=== PATIENT | female | born 1955 | race Caucasian/White ===

== ENCOUNTER 2016-11-20 13:27 | Emergency (ER) | payer OTHER ==
[~2016-11-20] VITALS: Ht 180.3 cm; Wt 106.3 kg
[~2016-11-20 13:27] MED LIST: ALPRAZOLAM1 MG PO; ATARAX,VISTARIL25 MG PO; ATORVASTATIN CA10 MG PO; BACLOFEN10 MG PO; CARISOPRODOL350 MG PO; CEPHALEXIN500 MG PO; DECARA50000 UNIT PO; DEXILANT30 MG PO; FIORICET,ESG1 TABLET PO; FLEXERIL10 MG PO; FLEXERIL5 MG PO; FLONASE16 G1 BOTH NARES; GABAPENTIN300 MG PO; K-DUR20 MEQ PO; LIDODERM 5% P1 PATCH TD; LISINOPRIL10 MG PO; LISINOPRIL20 MG PO; LORTAB 5-325 M1 EACH PO; MOTRIN600 MG PO; NAPROSYN500 MG PO; NAPROXEN500 MG PO; NIX 5% CREAM60 GM TP; NYSTATIN-TRIAMC15 GM TP; PEPCID40 MG PO; PERCOCET 5/31 TABLET PO; PREDNISONE10 MG PO; PREDNISONE20 MG PO; SINGULAIR10 MG PO; SOMA350 MG PO; TEMAZEPAM30 MG PO; TRAMADOL HCL50 MG PO; ULTRAM50 MG PO; VALIUM5 MG PO; XANAX1 MG PO; ZANTAC75 M1 PO; ZOFRAN4 MG PO
[2016-11-20] MEDS ORDERED: MOTRIN800 MG PO (14:51)
[2016-11-20] MEDS ORDERED: ULTRAM50 MG PO (14:51)
[2016-11-20] MEDS ORDERED: PREDNISONE20 MG PO (14:51)
[2016-11-20 15:18] VITALS: BP 164/99
== END 2016-11-20 15:19 | disposition home or self-care (01) ==
LOC: EME 13:27
DX: M54.42 Lumbago with sciatica, left side (principal); G89.29 Other chronic pain; I10 Essential (primary) hypertension; M79.7 Fibromyalgia; F17.200 Nicotine dependence, unspecified, uncomplicated
CPT/HCPCS: 99281; 99284; J1885; J2270; J3360; J7512

== ENCOUNTER 2017-02-01 14:46 | Emergency (ER) | payer OTHER ==
[~2017-02-01 14:46] MED LIST changes: +MOTRIN800 MG PO
[2017-02-01 15:14] LABS: EOSINOPHIL COUNT 0.1 K/uL (0-0.3); HEMATOCRIT 47.2 % (36.0-46.0); IMMATURE GRANULOCYTE (%) 0.2 % (0.0-0.7); INSTRUMENT ABS NEUTROPHIL CT 2.8 K/uL; LYMPHOCYTE COUNT 1.9 K/uL (1.0-2.8); MCHC 31.6 G/DL (30.0-36.0); MCV 88.7 FL (83-99); MEAN PLAT.VOLUME 10.3 uM^3 (9.5-12.4); MONOCYTE (%) 8.6 % (3-12); MONOCYTE COUNT 0.5 K/uL (0-0.8); NEUTROPHIL (%) 53.2 % (45-76); NEUTROPHIL COUNT 2.8 K/uL (1.8-6.4); PLATELET COUNT 253 K/uL (156-360); RBC DIS.WIDTH-CV 14.2 % (11.8-14.6); RBC DIS.WIDTH-SD 45.8 % (39-53); RED BLOOD COUNT 5.32 M/uL (3.80-5.20); WHITE BLOOD COUNT 5.3 K/uL (4.1-10.2)
[2017-02-01 15:22] LABS: AMYLASE 55 IU/L (1-118); CHLORIDE 107 mEq/L (99-109); POTASSIUM 3.9 mEq/L (3.7-5.4); SODIUM 142 mEq/L (136-147)
[2017-02-01 15:24] LABS: GLUCOSE 101 mg/dL (70-99)
[2017-02-01 15:26] LABS: ANION GAP 12 MEQ/L (2-14)
[2017-02-01 15:27] LABS: SERUM ETHYL ALCOHOL < 10 mg/dL
[2017-02-01 15:28] LABS: GFR ESTIMATE (CALCULATED) > 59 mL/min/
[2017-02-01 15:29] LABS: UREA NITROGEN (BUN) 17 mg/dL (9-23)
[2017-02-01 15:31] LABS: LIPASE 11 U/L (1.0-51.0)
[2017-02-01 18:00] VITALS: BP 115/62
== END 2017-02-01 18:37 | disposition home or self-care (01) ==
LOC: TRA
PROVIDERS: Emergency Medicine
DX: S00.81XA Abrasion of other part of head, initial encounter (principal); V48.1XXA Car passenger injured in noncollision transport accident in nontraffic accident, initial encounter
CPT/HCPCS: 70450; 71250; 72125; 74176; 80048; 81003; 82150; 83690; 85025; 86900; 86901; 93005; 99281; 99284; G0480

== ENCOUNTER 2017-02-11 03:48 | Emergency (ER) | payer OTHER ==
[~2017-02-11] VITALS: Ht 180.3 cm; Wt 111.0 kg
[2017-02-11 05:21] VITALS: BP 166/103
== END 2017-02-11 05:32 | disposition home or self-care (01) ==
LOC: EME 03:48
DX: S16.1XXA Strain of muscle, fascia and tendon at neck level, initial encounter (principal); S06.0X0A Concussion without loss of consciousness, initial encounter; V89.2XXA Person injured in unspecified motor-vehicle accident, traffic, initial encounter; M54.32 Sciatica, left side; I10 Essential (primary) hypertension; F17.200 Nicotine dependence, unspecified, uncomplicated
CPT/HCPCS: 70450; 72125; 99281; 99284; J1170; J7512

== ENCOUNTER 2017-02-11 12:36 | Emergency (ER) | payer OTHER ==
[~2017-02-11] VITALS: Ht 180.3 cm; Wt 108.0 kg
[2017-02-11 13:47] LABS: HEMATOCRIT 42.9 % (36.0-46.0); MCH 28.5 PG (29.0-34.0); MCHC 32.4 G/DL (30.0-36.0); MCV 88.1 FL (83-99); MEAN PLAT.VOLUME 10.8 uM^3 (9.5-12.4); PLATELET COUNT 258 K/uL (156-360); RBC DIS.WIDTH-SD 45.2 % (39-53); RED BLOOD COUNT 4.87 M/uL (3.80-5.20); WHITE BLOOD COUNT 5.6 K/uL (4.1-10.2)
[2017-02-11 13:57] LABS: CHLORIDE 107 mEq/L (99-109); POTASSIUM 3.7 mEq/L (3.7-5.4); SODIUM 140 mEq/L (136-147)
[2017-02-11 13:59] LABS: GLUCOSE 180 mg/dL (70-99)
[2017-02-11 14:00] LABS: ANION GAP 12 MEQ/L (2-14)
[2017-02-11 14:03] LABS: GFR ESTIMATE (CALCULATED) > 59 mL/min/
[2017-02-11 14:04] LABS: UREA NITROGEN (BUN) 9 mg/dL (9-23)
[2017-02-11 14:51] LABS: ADD MIUA? YES; BILIRUBIN NEGATIVE; BLOOD SMALL; COLOR STRAW ((YELLOW)); GLUCOSE (STRIP) NEGATIVE; KETONES NEGATIVE; LEUKOCYTES NEGATIVE; NITRITE NEGATIVE; PROTEIN (STRIP) NEGATIVE; SPECIFIC GRAVITY 1.006 (1.000-1.030); UROBILINOGEN 0.2 MG/DL (0.2-1.0)
[2017-02-11 14:58] LABS: BACTERIA RARE /HPF; EPITHELIAL CELLS RARE /HPF; MUCUS TRACE /LPF; RED BLOOD CELLS 0-5 /HPF (0-5); WHITE BLOOD CELLS 0-5 /HPF (0-5)
[2017-02-11 15:32] VITALS: BP 155/79
== END 2017-02-11 15:33 | disposition home or self-care (01) ==
LOC: RME 12:36 → EME 12:36 → RME 15:33
PROVIDERS: Nurse Practitioner Family
DX: R51 Headache (principal); F07.81 Postconcussional syndrome; I10 Essential (primary) hypertension; V89.2XXD Person injured in unspecified motor-vehicle accident, traffic, subsequent encounter; F17.200 Nicotine dependence, unspecified, uncomplicated; Z88.0 Allergy status to penicillin
CPT/HCPCS: 80048; 81003; 85027; 99281; 99285; J1100; J1200; J1630; J1885; J2765; J7030

== ENCOUNTER 2017-04-20 01:07 | Emergency (ER) | payer OTHER ==
[~2017-04-20] VITALS: Ht 180.3 cm; Wt 104.5 kg
[2017-04-20 01:35] LABS: MCH 28.3 PG (29.0-34.0); MCHC 32.2 G/DL (30.0-36.0); MCV 87.9 FL (83-99); MEAN PLAT.VOLUME 10.3 uM^3 (9.5-12.4); PLATELET COUNT 241 K/uL (156-360); RBC DIS.WIDTH-CV 14.6 % (11.8-14.6); RED BLOOD COUNT 5.12 M/uL (3.80-5.20)
[2017-04-20 01:44] LABS: CHLORIDE 100 mEq/L (99-109); POTASSIUM 3.8 mEq/L (3.7-5.4); SODIUM 140 mEq/L (136-147)
[2017-04-20 01:46] LABS: GLUCOSE 124 mg/dL (70-99)
[2017-04-20 01:48] LABS: ANION GAP 16 MEQ/L (2-14); TOTAL BILIRUBIN 0.3 mg/dL (0.0-1.0)
[2017-04-20 01:50] LABS: ALKALINE PHOSPHATASE 128 IU/L (3-129); GFR ESTIMATE (CALCULATED) > 59 mL/min/
[2017-04-20 01:51] LABS: UREA NITROGEN (BUN) 28 mg/dL (9-23)
[2017-04-20 02:41] LABS: ADD MIUA? NO; BILIRUBIN NEGATIVE; BLOOD NEGATIVE; COLOR YELLOW ((YELLOW)); GLUCOSE (STRIP) NEGATIVE; KETONES 20; LEUKOCYTES NEGATIVE; NITRITE NEGATIVE; PROTEIN (STRIP) NEGATIVE; SPECIFIC GRAVITY 1.026 (1.000-1.030); UCUL ADDED? NO; UROBILINOGEN 0.2 MG/DL (0.2-1.0)
[2017-04-20] MEDS ORDERED: TRAMADOL HCL50 MG PO (03:37)
[2017-04-20] MEDS ORDERED: PEPCID20 MG PO (03:37)
[2017-04-20 04:27] LABS: LIPASE 15 U/L (1.0-51.0)
[2017-04-20 04:37] VITALS: BP 125/78
== END 2017-04-20 04:38 | disposition home or self-care (01) ==
LOC: EME 01:07
DX: R11.2 Nausea with vomiting, unspecified (principal); R10.9 Unspecified abdominal pain; I10 Essential (primary) hypertension; F17.200 Nicotine dependence, unspecified, uncomplicated
CPT/HCPCS: 80053; 81003; 83690; 85027; 99281; 99284

== ENCOUNTER 2017-04-29 16:09 | Emergency (ER) | payer OTHER ==
[~2017-04-29] VITALS: Ht 180.3 cm; Wt 104.5 kg
[~2017-04-29 16:09] MED LIST changes: +PEPCID20 MG PO
[2017-04-29 17:39] LABS: ADD MIUA? YES; BILIRUBIN NEGATIVE; BLOOD SMALL; COLOR YELLOW ((YELLOW)); GLUCOSE (STRIP) NEGATIVE; KETONES NEGATIVE; LEUKOCYTES TRACE; NITRITE NEGATIVE; PROTEIN (STRIP) 30; SPECIFIC GRAVITY 1.017 (1.000-1.030); UROBILINOGEN 0.2 MG/DL (0.2-1.0)
[2017-04-29 17:52] LABS: BACTERIA 3+ /HPF; EPITHELIAL CELLS 3+ /HPF; HYALINE CASTS 15-20 /LPF; MUCUS 1+ /LPF; UCUL ADDED? NO; WHITE BLOOD CELLS 0-5 /HPF (0-5)
[2017-04-29 18:19] LABS: HEMATOCRIT 46.7 % (36.0-46.0); MCH 28.2 PG (29.0-34.0); MCHC 32.3 G/DL (30.0-36.0); MCV 87.1 FL (83-99); MEAN PLAT.VOLUME 10.4 uM^3 (9.5-12.4); PLATELET COUNT 311 K/uL (156-360); RBC DIS.WIDTH-CV 14.2 % (11.8-14.6); RBC DIS.WIDTH-SD 45.4 % (39-53); RED BLOOD COUNT 5.36 M/uL (3.80-5.20); WHITE BLOOD COUNT 11.5 K/uL (4.1-10.2)
[2017-04-29 18:29] LABS: CHLORIDE 99 mEq/L (99-109); POTASSIUM 3.5 mEq/L (3.7-5.4)
[2017-04-29 18:30] LABS: SODIUM 137 mEq/L (136-147)
[2017-04-29 18:32] LABS: GLUCOSE 105 mg/dL (70-99)
[2017-04-29 18:33] LABS: ANION GAP 11 MEQ/L (2-14)
[2017-04-29 18:34] LABS: TOTAL BILIRUBIN 0.5 mg/dL (0.0-1.0)
[2017-04-29 18:35] LABS: ALKALINE PHOSPHATASE 116 IU/L (3-129); GFR ESTIMATE (CALCULATED) > 59 mL/min/
[2017-04-29 18:37] LABS: UREA NITROGEN (BUN) 19 mg/dL (9-23)
[2017-04-29 18:39] LABS: LIPASE 18 U/L (1.0-51.0)
[2017-04-29 18:42] LABS: TROP-I INTERPRETATION NEGATIVE; TROPONIN-I < 0.01 ng/mL (0.0-0.30)
[2017-04-29] MEDS ORDERED: NEXIUM20 MG PO (19:57)
[2017-04-29] MEDS ORDERED: PERCOCET 5/31 TABLET PO (19:57)
[2017-04-29] MEDS ORDERED: ZOFRAN ODT4 MG PO (19:57)
[2017-04-29 20:13] VITALS: BP 140/75
== END 2017-04-29 20:17 | disposition home or self-care (01) ==
LOC: EME 16:09
PROVIDERS: Physician Assistant
DX: K27.9 Peptic ulcer, site unspecified, unspecified as acute or chronic, without hemorrhage or perforation (principal); M79.7 Fibromyalgia; J45.909 Unspecified asthma, uncomplicated; I10 Essential (primary) hypertension; Z88.0 Allergy status to penicillin; F17.200 Nicotine dependence, unspecified, uncomplicated
CPT/HCPCS: 74177; 80053; 81003; 83690; 84484; 85027; 93005; 99281; 99285; J2270; J2405; J7030

== ENCOUNTER 2017-05-03 18:51 | Emergency (ER) | payer OTHER ==
[~2017-05-03] VITALS: Ht 180.3 cm; Wt 101.3 kg
[~2017-05-03 18:51] MED LIST changes: +NEXIUM20 MG PO; +ZOFRAN ODT4 MG PO
[2017-05-03] MEDS ORDERED: LIDOCARE1 EACH TP (21:56)
[2017-05-03 22:24] VITALS: BP 160/77
== END 2017-05-03 22:29 | disposition home or self-care (01) ==
LOC: EME 18:51
DX: M54.5 Low back pain (principal); I10 Essential (primary) hypertension; M79.7 Fibromyalgia; J45.909 Unspecified asthma, uncomplicated; Z88.0 Allergy status to penicillin; F17.200 Nicotine dependence, unspecified, uncomplicated
CPT/HCPCS: J1630; J1885; J3360

== ENCOUNTER 2017-06-13 02:34 | Emergency (ER) | payer OTHER ==
[~2017-06-13] VITALS: Ht 180.3 cm; Wt 97.7 kg
[~2017-06-13 02:34] MED LIST changes: +LIDOCARE1 EACH TP
[2017-06-13 03:18] LABS: BILIRUBIN NEGATIVE; BLOOD NEGATIVE; COLOR YELLOW ((YELLOW)); GLUCOSE (STRIP) NEGATIVE; KETONES NEGATIVE; LEUKOCYTES NEGATIVE; NITRITE NEGATIVE; PROTEIN (STRIP) NEGATIVE; SPECIFIC GRAVITY 1.019 (1.000-1.030); UROBILINOGEN 0.2 MG/DL (0.2-1.0)
[2017-06-13 03:20] LABS: ADD MIUA? NO; UCUL ADDED? NO
[2017-06-13 03:25] LABS: EOSINOPHIL (%) 1.6 % (0-5); EOSINOPHIL COUNT 0.1 K/uL (0-0.3); HEMATOCRIT 41.8 % (36.0-46.0); IMMATURE GRANULOCYTE (%) 0.2 % (0.0-0.7); INSTRUMENT ABS NEUTROPHIL CT 3.8 K/uL; LYMPHOCYTE COUNT 3.4 K/uL (1.0-2.8); MCH 28.9 PG (29.0-34.0); MCHC 32.1 G/DL (30.0-36.0); MCV 90.3 FL (83-99); MEAN PLAT.VOLUME 10.1 uM^3 (9.5-12.4); MONOCYTE (%) 10.1 % (3-12); MONOCYTE COUNT 0.8 K/uL (0-0.8); NEUTROPHIL (%) 46.1 % (45-76); NEUTROPHIL COUNT 3.8 K/uL (1.8-6.4); PLATELET COUNT 266 K/uL (156-360); RBC DIS.WIDTH-CV 14.4 % (11.8-14.6); RBC DIS.WIDTH-SD 47.5 % (39-53); RED BLOOD COUNT 4.63 M/uL (3.80-5.20); WHITE BLOOD COUNT 8.2 K/uL (4.1-10.2)
[2017-06-13 03:35] LABS: CHLORIDE 106 mEq/L (99-109); POTASSIUM 3.8 mEq/L (3.7-5.4)
[2017-06-13 03:36] LABS: SODIUM 142 mEq/L (136-147)
[2017-06-13 03:38] LABS: GLUCOSE 97 mg/dL (70-99)
[2017-06-13 03:39] LABS: ANION GAP 8 MEQ/L (2-14)
[2017-06-13 03:40] LABS: TOTAL BILIRUBIN 0.3 mg/dL (0.0-1.0)
[2017-06-13 03:41] LABS: ALKALINE PHOSPHATASE 124 IU/L (3-129)
[2017-06-13 03:42] LABS: GFR ESTIMATE (CALCULATED) > 59 mL/min/
[2017-06-13 03:43] LABS: UREA NITROGEN (BUN) 15 mg/dL (9-23)
[2017-06-13 03:45] LABS: LIPASE 23 U/L (1.0-51.0)
[2017-06-13] MEDS ORDERED: FLEXERIL10 MG PO (04:16)
[2017-06-13] MEDS ORDERED: LIDOCAINE700 MG TP (04:16)
[2017-06-13 04:40] VITALS: BP 113/50
== END 2017-06-13 04:58 | disposition home or self-care (01) ==
LOC: EME → EDBD 02:34 → EME 02:34 → EDSEX 02:34 → EME 04:58
PROVIDERS: Emergency Medicine
DX: M54.5 Low back pain (principal); G89.29 Other chronic pain; K59.00 Constipation, unspecified; M79.7 Fibromyalgia; I10 Essential (primary) hypertension; J45.909 Unspecified asthma, uncomplicated; F17.200 Nicotine dependence, unspecified, uncomplicated; Z87.19 Personal history of other diseases of the digestive system
CPT/HCPCS: 71020; 74176; 80053; 81003; 83690; 85025; 99281; 99284; J2405; J3010

== ENCOUNTER 2017-07-10 21:13 | Emergency (ER) | payer OTHER ==
[~2017-07-10] VITALS: Ht 180.3 cm; Wt 101.6 kg
[~2017-07-10 21:13] MED LIST changes: +LIDOCAINE700 MG TP
[2017-07-10] MEDS ORDERED: PREDNISONE20 MG PO (23:25)
[2017-07-10 23:29] VITALS: BP 159/101
== END 2017-07-10 23:49 | disposition home or self-care (01) ==
LOC: EME 21:13 → EXP 21:13
DX: M54.42 Lumbago with sciatica, left side (principal); G89.29 Other chronic pain; F17.200 Nicotine dependence, unspecified, uncomplicated; Z88.0 Allergy status to penicillin
CPT/HCPCS: 99281; 99284; J7512

== ENCOUNTER 2017-10-07 07:06 | Emergency (ER) | payer OTHER ==
[~2017-10-07] VITALS: Ht 180.3 cm; Wt 100.5 kg
[2017-10-07] MEDS ORDERED: NAPROXEN500 MG PO (09:53)
[2017-10-07] MEDS ORDERED: FLEXERIL10 MG PO (09:53)
[2017-10-07 10:15] VITALS: BP 167/90
[2017-10-08] MEDS ORDERED: ALPRAZOLAM1 MG PO (14:23)
[2017-10-08] MEDS ORDERED: AMOX TR-K CLV1 EAC4 PO (14:23)
[2017-10-08] MEDS ORDERED: ENDOCET 5-3251 EACH PO (14:42)
[2017-10-08] MEDS ORDERED: LIDODERM 5% P1 PATCH TD (14:42)
[2017-10-08] MEDS ORDERED: FLEXERIL10 MG PO (14:42)
== END 2017-10-07 10:57 | disposition home or self-care (01) ==
LOC: EME 07:06
DX: S30.0XXA Contusion of lower back and pelvis, initial encounter (principal); M54.6 Pain in thoracic spine; W10.8XXA Fall (on) (from) other stairs and steps, initial encounter; Y93.01 Activity, walking, marching and hiking; Y92.009 Unspecified place in unspecified non-institutional (private) residence as the place of occurrence of the external cause; J45.909 Unspecified asthma, uncomplicated; M79.7 Fibromyalgia; I10 Essential (primary) hypertension; F17.200 Nicotine dependence, unspecified, uncomplicated; Z88.0 Allergy status to penicillin; Z87.19 Personal history of other diseases of the digestive system
CPT/HCPCS: 72070; 72100; 72128; 99281; 99284; J1885

== ENCOUNTER 2017-10-08 11:06 | Emergency (ER) | payer OTHER ==
[~2017-10-08] VITALS: Ht 180.3 cm; Wt 105.1 kg
[2017-10-08] MEDS ORDERED: ALPRAZOLAM1 MG PO (14:23)
[2017-10-08] MEDS ORDERED: AMOX TR-K CLV1 EAC4 PO (14:23)
[2017-10-08] MEDS ORDERED: LIDODERM 5% P1 PATCH TD (14:42)
[2017-10-08] MEDS ORDERED: FLEXERIL10 MG PO (14:42)
[2017-10-08] MEDS ORDERED: ENDOCET 5-3251 EACH PO (14:42)
[2017-10-08 15:15] VITALS: BP 154/82
== END 2017-10-08 15:16 | disposition home or self-care (01) ==
LOC: EME 11:06
DX: M54.5 Low back pain (principal); Z91.81 History of falling; M79.7 Fibromyalgia; I10 Essential (primary) hypertension; J45.909 Unspecified asthma, uncomplicated; F17.200 Nicotine dependence, unspecified, uncomplicated; Z87.19 Personal history of other diseases of the digestive system; Z88.0 Allergy status to penicillin
CPT/HCPCS: 99281; 99283

== ENCOUNTER 2017-11-10 18:14 | Emergency (ER) | payer OTHER ==
[~2017-11-10] VITALS: Ht 180.3 cm; Wt 103.0 kg
[~2017-11-10 18:14] MED LIST changes: +AMOX TR-K CLV1 EAC4 PO; +ENDOCET 5-3251 EACH PO
[2017-11-10 20:51] VITALS: BP 126/97
== END 2017-11-10 20:51 | disposition left against medical advice (07) ==
LOC: EME 18:14
DX: M54.5 Low back pain (principal); W00.0XXA Fall on same level due to ice and snow, initial encounter; Z88.0 Allergy status to penicillin
CPT/HCPCS: 99281; 99283

== ENCOUNTER 2017-11-13 14:30 | Emergency (ER) | payer OTHER ==
[~2017-11-13] VITALS: Ht 180.3 cm; Wt 104.3 kg
[2017-11-13 15:44] LABS: APPEARANCE SL.HAZY ((CLEAR)); BILIRUBIN NEGATIVE; BLOOD NEGATIVE; COLOR YELLOW ((YELLOW)); GLUCOSE (STRIP) NEGATIVE; KETONES NEGATIVE; LEUKOCYTES NEGATIVE; NITRITE NEGATIVE; PROTEIN (STRIP) NEGATIVE; UROBILINOGEN 0.2 MG/DL (0.2-1.0)
[2017-11-13 15:45] LABS: HEMATOCRIT 43.2 % (36.0-46.0); HEMOGLOBIN 13.7 G/DL (11.9-15.5); MCH 29.6 PG (29.0-34.0); MCHC 31.7 G/DL (30.0-36.0); MCV 93.3 FL (83-99); PLATELET COUNT 234 K/uL (156-360); RBC DIS.WIDTH-SD 47.5 % (39-53); RED BLOOD COUNT 4.63 M/uL (3.80-5.20)
[2017-11-13 15:50] LABS: BACTERIA NONE SEEN /HPF; EPITHELIAL CELLS RARE /HPF; HYALINE CASTS 0-5 /LPF; MUCUS 2+ /LPF; WHITE BLOOD CELLS 0-5 /HPF (0-5)
[2017-11-13 15:53] LABS: ALBUMIN 3.9 g/dL (3.2-4.8); CHLORIDE 107 mEq/L (99-109); POTASSIUM 3.7 mEq/L (3.7-5.4); SODIUM 142 mEq/L (136-147)
[2017-11-13 15:56] LABS: GLUCOSE 102 mg/dL (70-99); TOTAL PROTEIN 6.7 g/dL (6.4-8.3)
[2017-11-13 15:58] LABS: TOTAL BILIRUBIN 0.2 mg/dL (0.0-1.0)
[2017-11-13 15:59] LABS: SERUM ETHYL ALCOHOL < 10 mg/dL
[2017-11-13 16:00] LABS: ALKALINE PHOSPHATASE 149 IU/L (3-129); CREATININE 0.7 mg/dL (0.6-1.3); GFR ESTIMATE (CALCULATED) > 59 mL/min/
[2017-11-13 16:01] LABS: AST (GOT) 52 IU/L (2-34); UREA NITROGEN (BUN) 26 mg/dL (9-23)
[2017-11-13 16:03] LABS: ACETAMINOPHEN (TYLENOL) < 10 mcg/mL (10-30); ALT (GPT) 55 IU/L (3-49); SALICYLATE < 5.0 MG/DL (15-30)
[2017-11-13 16:04] LABS: AMPHETAMINE NEGATIVE (500 ng/mL); BARBITURATES NEGATIVE (200 ng/mL); BENZODIAZEPINES PRESUMPTIVE POSITIVE (150 ng/mL); BUPRENORPHINE NEGATIVE (10 ng/mL); COCAINE NEGATIVE (150 ng/mL); METHADONE NEGATIVE (200 ng/mL); METHAMPHETAMINE NEGATIVE (500 ng/mL); OPIATES (MORPHINE) NEGATIVE (100 ng/mL); OXYCODONE NEGATIVE (100 ng/mL); PHENCYCLIDINE NEGATIVE (25 ng/mL); PROPOXYPHENE NEGATIVE (300 ng/mL); THC CANNABINOIDS PRESUMPTIVE POSITIVE (50 ng/mL); TRICYCLIC ANTIDEPRESSANTS NEGATIVE (300 ng/mL)
[2017-11-13 16:33] LABS: BENZODIAZEPINES, URINE SCREEN POSITIVE (200 ng/mL)
[2017-11-13 17:54] VITALS: BP 104/74
== END 2017-11-13 18:07 | disposition left against medical advice (07) ==
LOC: EME 14:30
PROVIDERS: Emergency Medicine
DX: T42.8X1A Poisoning by antiparkinsonism drugs and other central muscle-tone depressants, accidental (unintentional), initial encounter (principal); E86.0 Dehydration; Z91.81 History of falling; S00.212A Abrasion of left eyelid and periocular area, initial encounter; S80.212A Abrasion, left knee, initial encounter; W18.30XA Fall on same level, unspecified, initial encounter; Y92.009 Unspecified place in unspecified non-institutional (private) residence as the place of occurrence of the external cause; S80.811A Abrasion, right lower leg, initial encounter; J45.909 Unspecified asthma, uncomplicated; M79.7 Fibromyalgia; I10 Essential (primary) hypertension; Z88.0 Allergy status to penicillin; Z87.891 Personal history of nicotine dependence
CPT/HCPCS: 70450; 71045; 72125; 80053; 81003; 82140; 84999; 85027; 93005; 99281; 99284; G0480

== ENCOUNTER 2017-11-16 04:37 | Emergency (ER) | payer OTHER ==
[~2017-11-16] VITALS: Ht 180.3 cm; Wt 106.0 kg
[2017-11-16 06:02] VITALS: BP 139/70
== END 2017-11-16 06:03 | disposition home or self-care (01) ==
LOC: EME 04:37
DX: S50.01XA Contusion of right elbow, initial encounter (principal); S93.401A Sprain of unspecified ligament of right ankle, initial encounter; R51 Headache; M54.2 Cervicalgia; W19.XXXA Unspecified fall, initial encounter; Y92.481 Parking lot as the place of occurrence of the external cause; M48.02 Spinal stenosis, cervical region; Z87.891 Personal history of nicotine dependence
CPT/HCPCS: 70450; 72125; 73080; 73610; 99281; 99283

== ENCOUNTER 2017-11-24 02:00 | Emergency (ER) | payer OTHER ==
[~2017-11-24] VITALS: Ht 180.3 cm; Wt 103.6 kg
[2017-11-24 02:23] LABS: HEMATOCRIT 43.9 % (36.0-46.0); HEMOGLOBIN 14.4 G/DL (11.9-15.5); MCH 29.6 PG (29.0-34.0); MCHC 32.8 G/DL (30.0-36.0); MCV 90.3 FL (83-99); PLATELET COUNT 268 K/uL (156-360); RBC DIS.WIDTH-CV 14.3 % (11.8-14.6); RBC DIS.WIDTH-SD 47.1 % (39-53); RED BLOOD COUNT 4.86 M/uL (3.80-5.20); WHITE BLOOD COUNT 8.4 K/uL (4.1-10.2)
[2017-11-24 02:34] LABS: ALBUMIN 4.1 g/dL (3.2-4.8)
[2017-11-24 02:35] LABS: CHLORIDE 108 mEq/L (99-109); POTASSIUM 3.4 mEq/L (3.7-5.4); SODIUM 141 mEq/L (136-147)
[2017-11-24 02:37] LABS: GLUCOSE 121 mg/dL (70-99); TOTAL PROTEIN 7.3 g/dL (6.4-8.3)
[2017-11-24 02:39] LABS: TOTAL BILIRUBIN 0.3 mg/dL (0.0-1.0)
[2017-11-24 02:40] LABS: ALKALINE PHOSPHATASE 135 IU/L (3-129)
[2017-11-24 02:41] LABS: CREATININE 0.8 mg/dL (0.6-1.3); GFR ESTIMATE (CALCULATED) > 59 mL/min/
[2017-11-24 02:42] LABS: AST (GOT) 16 IU/L (2-34); UREA NITROGEN (BUN) 25 mg/dL (9-23)
[2017-11-24 02:43] LABS: ALT (GPT) 19 IU/L (3-49)
[2017-11-24] MEDS ORDERED: BACTRIM,SEPT1 TABLET PO (06:04)
[2017-11-24] MEDS ORDERED: AUGMENTIN875 MG PO (06:04)
[2017-11-24] MEDS ORDERED: BACITRACIN-P28.35 GM TP (06:09)
[2017-11-24 06:30] VITALS: BP 108/68
== END 2017-11-24 06:31 | disposition home or self-care (01) ==
LOC: EME 02:00
PROC: 3E0234Z Introduction of Serum, Toxoid and Vaccine into Muscle, Percutaneous Approach (ICD-10-PCS; principal; 2017-11-24)
DX: T25.221A Burn of second degree of right foot, initial encounter (principal); L03.115 Cellulitis of right lower limb; X12.XXXA Contact with other hot fluids, initial encounter; Z23 Encounter for immunization; Z88.0 Allergy status to penicillin; Z72.0 Tobacco use
CPT/HCPCS: 73630; 80053; 85027; 99281; 99284; J0295; J1885; J3010; J7030; J7050

== ENCOUNTER 2018-03-16 04:41 | Emergency (ER) | payer OTHER ==
[~2018-03-16] VITALS: Ht 180.3 cm; Wt 107.0 kg
[~2018-03-16 04:41] MED LIST changes: +AUGMENTIN875 MG PO; +BACITRACIN-P28.35 GM TP; +BACTRIM,SEPT1 TABLET PO
[2018-03-16 06:30] VITALS: BP 109/55
== END 2018-03-16 06:33 | disposition left against medical advice (07) ==
LOC: EME 04:41
DX: G43.909 Migraine, unspecified, not intractable, without status migrainosus (principal); J45.909 Unspecified asthma, uncomplicated; M79.7 Fibromyalgia; I10 Essential (primary) hypertension; Z87.19 Personal history of other diseases of the digestive system; F17.200 Nicotine dependence, unspecified, uncomplicated; Z88.0 Allergy status to penicillin
CPT/HCPCS: 99281; 99284; J1100; J1200; J2765; J7030